=== PATIENT | female | born 1980 | race Caucasian/White ===

== ENCOUNTER 2017-01-15 11:17 | Emergency (ER) | payer OTHER ==
[~2017-01-15] VITALS: Ht 162.6 cm; Wt 70.1 kg
[~2017-01-15 11:17] MED LIST: ALBU8.5H3 INH; ALPR1TAB10 PO; BIRTH CONTROL PO; FLUT1DIS3 INH; KETO10TA PO; METO10TA82 PO; MOME13HF INH; MONT10TA6 PO; ONDA-39 PO; OXYC-229 PO; OXYC1TAB8 PO; RIVA15TA PO; TRAM50TA2 PO
[2017-01-15] MEDS ORDERED: ASPIRIN 81 MG TABLET CHEW ONE (12:23)
[2017-01-15] MEDS ORDERED: SODIUM CHLORIDE 0.9% 1,000ML IVBOLUS ONE (12:30)
[2017-01-15] MEDS ORDERED: ASPIRIN 81 MG TABLET CHEW PO ONE (12:30)
[2017-01-15 13:01] LABS: HEMOGLOBIN 8.7 g/dL (11.7-16.4)
[2017-01-15 13:10] LABS: ASPARTATE AMINO TRANSFERASE 14 U/L (15-37); BLOOD UREA NITROGEN 11 mg/dL (7-18)
[2017-01-15 13:16] LABS: DIFF TOTAL CELLS COUNTED 100 CELL DIFF; IS PT STATUS REG ER OR PRE ER? YES
[2017-01-15 13:19] LABS: VERIFY COUNTS? YES
[2017-01-15 13:20] LABS: ANISOCYTOSIS 1+
[2017-01-15] MEDS ORDERED: HYDROmorphone 1 MG/ML, 1ML IM STA (13:21)
[2017-01-15] MEDS ORDERED: HYDROmorphone 1 MG/ML, 1ML ONE (13:23)
[2017-01-15] MEDS ORDERED: ONDANSETRON ODT 4 MG ONE (13:29)
[2017-01-15] MEDS ORDERED: MORPHINE SULFATE 4 MG/ML, 1ML IVPush PRN (13:30)
[2017-01-15] MEDS ORDERED: ONDANSETRON ODT 4 MG PO ONE (14:00)
[2017-01-15 15:31] VITALS: BP 93/62
== END 2017-01-15 16:33 | disposition home or self-care (01) ==
LOC: ED 13:34
DX: R07.2 Precordial pain (principal); D70.1 Agranulocytosis secondary to cancer chemotherapy; R07.89 Other chest pain; J45.909 Unspecified asthma, uncomplicated; F41.1 Generalized anxiety disorder; F15.10 Other stimulant abuse, uncomplicated; Z86.718 Personal history of other venous thrombosis and embolism; Z85.43 Personal history of malignant neoplasm of ovary; Z85.59 Personal history of malignant neoplasm of other urinary tract organ; Z86.711 Personal history of pulmonary embolism; Z88.1 Allergy status to other antibiotic agents; Z91.010 Allergy to peanuts; Z91.013 Allergy to seafood; Z91.018 Allergy to other foods
CPT/HCPCS: 36415; 71010; 80053; 84484; 85025; 85610; 93005; 96372; 99285; J1170; Q0162

== ENCOUNTER → 2017-02-01 | Outpatient (CLI) | payer MEDICAID ==
[~2017-02-01] MED LIST changes: +FLUO20CA19 PO
== END | disposition home or self-care (01) ==
LOC: ROC 09:34
PROVIDERS: ATTEND Radiology Radiation Oncology
DX: C54.1 Malignant neoplasm of endometrium (principal); Z98.890 Other specified postprocedural states
CPT/HCPCS: 99212; G0463

== ENCOUNTER 2017-03-27 16:10 | Emergency (ER) | payer MEDICAID ==
[~2017-03-27] VITALS: Ht 162.6 cm; Wt 69.7 kg
[2017-03-27] VITALS (7 sets, daily range): BP systolic 97–107; BP diastolic 55–68
[2017-03-27] MEDS ORDERED: SODIUM CHLORIDE FLUSH 10ML SYR IVF ONE (17:00)
[2017-03-27 18:38] LABS: BLOOD UREA NITROGEN 20 mg/dL (7-18)
[2017-03-27] MEDS ORDERED: LORazepam 2 MG/ML, 1ML ONE (19:05)
[2017-03-27] MEDS ORDERED: LORazepam 2 MG/ML, 1ML IVPush ONE (19:30)
== END 2017-03-27 21:45 | disposition home or self-care (01) ==
LOC: ED 20:56
DX: D64.9 Anemia, unspecified (principal); R42 Dizziness and giddiness; J45.909 Unspecified asthma, uncomplicated; Z90.710 Acquired absence of both cervix and uterus; Z88.2 Allergy status to sulfonamides
CPT/HCPCS: 36415; 36430; 71010; 80048; 86850; 86900; 86923; 93005; 96374; 99285; J2060; P9040

== ENCOUNTER → 2017-07-19 | Outpatient (CLI) | payer MEDICAID ==
[~2017-07-19] MED LIST changes: -ALBU8.5H3 INH; +ALBU8.5H8 INH; +OMNIPAQUE 350 MG/ML, 100ML BOTTLE ONE; -ONDA-39 PO; +ONDA4TAB12 PO; -OXYC-229 PO; +OXYC-307 PO
== END | disposition home or self-care (01) ==
LOC: CFH 09:11
PROVIDERS: ATTEND Specialist
DX: K76.89 Other specified diseases of liver (principal); K43.9 Ventral hernia without obstruction or gangrene; C54.1 Malignant neoplasm of endometrium; Z90.710 Acquired absence of both cervix and uterus
CPT/HCPCS: 74177; Q9967

== ENCOUNTER 2017-11-18 16:12 | Emergency (ER) | payer MEDICAID, OTHER ==
[~2017-11-18] VITALS: Ht 162.6 cm; Wt 75.0 kg
[~2017-11-18 16:12] MED LIST changes: -OMNIPAQUE 350 MG/ML, 100ML BOTTLE ONE
[2017-11-18] MEDS ORDERED: ONDANSETRON 2MG/ML, 2ML ONE (16:55)
[2017-11-18] MEDS ORDERED: KETOROLAC 30 MG/1 ML ONE (16:55)
[2017-11-18] MEDS ORDERED: SODIUM CHLORIDE FLUSH 10ML SYR IVF ONE (17:00)
[2017-11-18] MEDS ORDERED: KETOROLAC 30 MG/1 ML IVPush ONE (17:00)
[2017-11-18] MEDS ORDERED: ONDANSETRON 2MG/ML, 2ML IVPush ONE (17:00)
[2017-11-18] MEDS ORDERED: SODIUM CHLORIDE 0.9% 1,000ML IVBOLUS ONE (17:00)
[2017-11-18 17:08] LABS: MICROSCOPIC AUTO
[2017-11-18 17:10] LABS: CULTURE INDICATED? YES
[2017-11-18 17:17] LABS: BASOPHILS # (AUTO) 0.01 x10^3/uL (0-0.1); BASOPHILS % (AUTO) 0 % (0-1); EOSINOPHILS # (AUTO) 0.15 x10^3/uL (0-0.4); EOSINOPHILS % (AUTO) 4 % (1-7); LYMPHOCYTES # (AUTO) 1.08 x10^3/uL (1-3.4); LYMPHOCYTES % (AUTO) 28 % (22-44); MD NO; MEAN CORPUSCULAR HEMOGLOBIN 33.3 pg (27.0-34.8); MEAN CORPUSCULAR HGB CONC 33.7 g/dL (32.4-35.8); MEAN CORPUSCULAR VOLUME 98.7 fL (80-100); MEAN PLATELET VOLUME 7.3 fL (7.4-10.4); MONOCYTES # (AUTO) 0.34 x10^3/uL (0.2-0.8); MONOCYTES % (AUTO) 9 % (2-9); NEUTROPHILS # (AUTO) 2.29 x10^3/uL (1.8-6.8); NEUTROPHILS % (AUTO) 59 % (42-75); PLATELET COUNT 259 x10^3/uL (130-400); RED BLOOD COUNT 3.88 x10^6/uL (3.82-5.3); RED CELL DISTRIBUTION WIDTH 12.8 % (9.6-15.2)
[2017-11-18 17:21] LABS: ALANINE AMINOTRANSFERASE 26 U/L (12-78); ALBUMIN 3.8 g/dL (3.4-5.0); ANION GAP 6 mmol/L (5-15); CALCIUM 8.5 mg/dL (8.5-10.1); CHLORIDE 108 mmol/L (98-107); CREATININE 0.64 mg/dL (0.55-1.02)
[2017-11-18 17:23] LABS: ALKALINE PHOSPHATASE 67 U/L (45-117); BILIRUBIN,TOTAL 0.2 mg/dL (0.2-1.0); TOTAL PROTEIN 6.8 g/dL (6.4-8.2)
[2017-11-18] MEDS ORDERED: OMNIPAQUE 350 MG/ML, 100ML BOTTLE ONE (18:00)
[2017-11-18 18:46] VITALS: BP 94/52
== END 2017-11-18 19:52 | disposition home or self-care (01) ==
LOC: ED 16:49
DX: K59.00 Constipation, unspecified (principal); F41.9 Anxiety disorder, unspecified; J45.909 Unspecified asthma, uncomplicated; Z90.49 Acquired absence of other specified parts of digestive tract; Z90.710 Acquired absence of both cervix and uterus; Z88.2 Allergy status to sulfonamides; Z86.718 Personal history of other venous thrombosis and embolism
CPT/HCPCS: 36415; 74177; 80053; 81001; 83690; 85025; 87086; 96361; 96374; 96375; 99285; J1885; J2405; J7030; Q9967

== ENCOUNTER → 2017-11-21 | Outpatient (CLI) | payer OTHER, MEDICAID | LOC: RAD 12:25 | PROVIDERS: ATTEND Specialist | DX: C54.1 Malignant neoplasm of endometrium (principal); R91.8 Other nonspecific abnormal finding of lung field | CPT/HCPCS: 71260; 74177 ==

== ENCOUNTER 2017-11-27 08:20 | Observation (INO) | payer OTHER, MEDICAID ==
[~2017-11-27] VITALS: Ht 162.6 cm; Wt 77.1 kg
[2017-11-27] MEDS ORDERED: LACTATED RINGERS 1,000 ML IV SCH (08:45)
[2017-11-27] MEDS ORDERED: magnesium PO (08:49)
[2017-11-27] MEDS ORDERED: collagen PO (08:49)
[2017-11-27] MEDS ORDERED: VIT D PO (08:49)
[2017-11-27] MEDS ORDERED: MULTI VIT PO (08:49)
[2017-11-27 08:56] VITALS: BP 106/77
[2017-11-27] MEDS ORDERED: EPINEPHRINE TOPICAL SOLN 1 MG/ML, 30ML ONE (08:58)
[2017-11-27] MEDS ORDERED: MUPIROCIN OINT 2%, 22GM ONE (08:58)
[2017-11-27] MEDS ORDERED: BUPIVACAINE/PF 0.5% ONE (08:58)
[2017-11-27] MEDS ORDERED: LIDOCAINE 1%, 50ML ONE (08:58)
[2017-11-27] MEDS ORDERED: THROMBIN 5,000 UNIT VIAL TP ONE (08:58)
[2017-11-27] MEDS ORDERED: EPINEPHRINE 1 MG/ML, 1ML ONE (08:59)
[2017-11-27] MEDS ORDERED: LIDOCAINE/PF 1%-EPI 1:200K, 30 ML ONE (08:59)
[2017-11-27] MEDS ORDERED: ONDANSETRON 2MG/ML, 2ML IVPush PRN (12:00)
[2017-11-27] MEDS ORDERED: FENTANYL PF 100 MCG/2ML IV PRN (12:00)
[2017-11-27] MEDS ORDERED: OXYcodone 5 MG/5 ML ORAL.SOL UDC PO PRN (12:00)
[2017-11-27] MEDS ORDERED: LABETALOL 5MG/ML, 20ML IV PRN (12:00)
[2017-11-27] MEDS ORDERED: hydrALAzine 20 MG/ML, 1ML IV PRN (12:00)
[2017-11-27] MEDS ORDERED: ACETAMINOPHEN 325 MG TABLET PO PRN (12:00)
[2017-11-27] MEDS ORDERED: METOCLOPRAMIDE 5 MG/ML, 2ML IV PRN (12:00)
[2017-11-27] MEDS ORDERED: HYDROmorphone 2 MG/ML, 1ML ONE (12:03)
[2017-11-27] MEDS: HYDROmorphone 1 MG/ML, 1ML IV PRN ×4 (12:05→12:44)
[2017-11-27] MEDS ORDERED: ALBUTEROL SULFATE 2.5 MG/3 ML NPPB STA (12:10)
[2017-11-27] MEDS ORDERED: ALBUTEROL SULFATE 2.5 MG/3 ML ONE (12:13)
[2017-11-27] MEDS ORDERED: LORazepam 2 MG/ML, 1ML ONE (12:23)
[2017-11-27] MEDS: LORazepam 2 MG/ML, 1ML IVPush PRN ×2 (12:26→12:56)
[2017-11-27] MEDS ORDERED: ALBUTEROL INH PRN (14:30)
[2017-11-27] MEDS ORDERED: ONDANSETRON 2MG/ML, 2ML IV PRN (14:30)
[2017-11-27] MEDS ORDERED: ALBUTEROL SULFATE 2.5 MG/3 ML NPPB PRN (15:00)
[2017-11-27] MEDS ORDERED: SUCCINYLCHOLINE 20 MG/ML, 10ML ONE (15:30)
[2017-11-27] MEDS ORDERED: ROCURONIUM 10 MG/ML,10ML ONE (15:30)
[2017-11-27] MEDS ORDERED: PROPOFOL 10 MG/ML, 20ML ONE (15:30)
[2017-11-27] MEDS ORDERED: ALBUTEROL SULFATE 200 PUFFS/8.5 GR INH ONE (15:30)
[2017-11-27] MEDS ORDERED: DEXAMETHASONE 4 MG/ML, 1ML ONE (15:30)
[2017-11-27] MEDS ORDERED: ONDANSETRON 2MG/ML, 2ML ONE (15:30)
[2017-11-27] MEDS: DEXAMETHASONE 4 MG/ML, 1ML IV SCH ×2 (15:53→19:45)
[2017-11-27] MEDS: morphine SULFATE 10 MG/ML, 1ML IV PRN ×3 (17:40→21:38)
[2017-11-27 19:10] VITALS: BP 124/68
[2017-11-27] MEDS ORDERED: MONTELUKAST 10 MG TABLET PO SCH (21:00)
[2017-11-27] MEDS ORDERED: ADVAIR INH SCH (21:00)
[2017-11-27] MEDS: D5%-LACTATED RINGERS 1,000 ML IV SCH (21:38)
[2017-11-28] MEDS ORDERED: CALCIUM CARBONATE 500 MG TABLET PO ONE
[2017-11-28 00:20] VITALS: BP 95/60
[2017-11-28] MEDS: DEXAMETHASONE 4 MG/ML, 1ML IV SCH (00:43)
[2017-11-28] MEDS: morphine SULFATE 10 MG/ML, 1ML IV PRN ×2 (00:43→05:12)
[2017-11-28 04:06] VITALS: BP 98/60
[2017-11-28] MEDS ORDERED: LEVOTHYROXINE 75 MCG TABLET ONE (05:07)
[2017-11-28] MEDS: D5%-LACTATED RINGERS 1,000 ML IV SCH (05:12)
[2017-11-28] MEDS ORDERED: LEVOTHYROXINE 150 MCG TABLET PO SCH (06:00)
[2017-11-28 07:01] VITALS: BP 96/61
[2017-11-28] MEDS ORDERED: HYDR-882 PO (10:51)
[2017-11-28] MEDS ORDERED: ONDA4TAB10 PO (10:53)
[2017-11-28] MEDS ORDERED: LEVO125T PO (10:53)
== END 2017-11-28 11:35 | disposition home or self-care (01) ==
LOC: OUT 08:20 → 4NOR 13:46 → OUT 13:58 → DCLOUNGE 11-28 11:15
PROVIDERS: ADMIT Specialist; ATTEND Specialist
DX: E04.2 Nontoxic multinodular goiter (principal); J45.909 Unspecified asthma, uncomplicated; Q85.8 Other phakomatoses, not elsewhere classified
CPT/HCPCS: 36415; 60240; 82310; 83970; 88305; 88307; 88333; 96374; 96375; 96376; C1729; G0378; J0171; J0330; J1100; J1170; J2060; J2270; J2405; J2704; J3490; J7120; J7121

== ENCOUNTER → 2017-12-05 | Outpatient (CLI) | payer OTHER, MEDICAID ==
[~2017-12-05] MED LIST changes: +HYDR-882 PO; +LEVO125T PO; +MULTI VIT PO; +ONDA4TAB10 PO; +VIT D PO; +collagen PO; +magnesium PO
== END | disposition home or self-care (01) ==
LOC: ROC 14:44
PROVIDERS: ATTEND Radiology Radiation Oncology
DX: C54.1 Malignant neoplasm of endometrium (principal)
CPT/HCPCS: 99212; G0463

== ENCOUNTER 2017-12-07 07:25 | Emergency (ER) | payer OTHER, MEDICAID ==
[~2017-12-07] VITALS: Ht 160 cm; Wt 73.0 kg
[2017-12-07] MEDS ORDERED: SODIUM CHLORIDE 0.9% 1,000 ML IV ONE (07:54)
[2017-12-07] MEDS ORDERED: MORPHINE SULFATE 4 MG/ML, 1ML IVPush PRN (08:00)
[2017-12-07] MEDS ORDERED: ONDANSETRON 2MG/ML, 2ML IVPush ONE (08:00)
[2017-12-07] MEDS ORDERED: SODIUM CHLORIDE 0.9% 1,000ML IVBOLUS ONE (08:00)
[2017-12-07] MEDS ORDERED: KETOROLAC 30 MG/1 ML ONE (08:46)
[2017-12-07 08:50] LABS: BASOPHILS # (AUTO) 0.01 x10^3/uL (0-0.1); BASOPHILS % (AUTO) 0 % (0-1); EOSINOPHILS # (AUTO) 0.13 x10^3/uL (0-0.4); EOSINOPHILS % (AUTO) 2 % (1-7); LYMPHOCYTES # (AUTO) 0.53 x10^3/uL (1-3.4); LYMPHOCYTES % (AUTO) 9 % (22-44); MD NO; MEAN CORPUSCULAR HEMOGLOBIN 32.5 pg (27.0-34.8); MEAN CORPUSCULAR VOLUME 95.6 fL (80-100); MEAN PLATELET VOLUME 7.3 fL (7.4-10.4); MONOCYTES # (AUTO) 0.41 x10^3/uL (0.2-0.8); MONOCYTES % (AUTO) 7 % (2-9); NEUTROPHILS # (AUTO) 4.63 x10^3/uL (1.8-6.8); NEUTROPHILS % (AUTO) 81 % (42-75); PLATELET COUNT 262 x10^3/uL (130-400); RED BLOOD COUNT 3.79 x10^6/uL (3.82-5.3); RED CELL DISTRIBUTION WIDTH 12.8 % (9.6-15.2)
[2017-12-07 08:59] LABS: ALBUMIN 3.3 g/dL (3.4-5.0); ANION GAP 7 mmol/L (5-15); CHLORIDE 108 mmol/L (98-107)
[2017-12-07 09:00] LABS: CREATININE 0.57 mg/dL (0.55-1.02)
[2017-12-07] MEDS ORDERED: KETOROLAC 30 MG/1 ML IVPush ONE (09:00)
[2017-12-07 09:27] VITALS: BP 87/63
== END 2017-12-07 09:37 | disposition home or self-care (01) ==
LOC: ED 09:30
DX: M54.2 Cervicalgia (principal); C54.1 Malignant neoplasm of endometrium; C56.9 Malignant neoplasm of unspecified ovary; E89.0 Postprocedural hypothyroidism; F41.9 Anxiety disorder, unspecified
CPT/HCPCS: 36415; 80048; 82040; 85025; 96361; 96374; 99284; J1885; J7030

== ENCOUNTER 2017-12-10 09:00 | Inpatient (IN) | payer OTHER, MEDICAID ==
[~2017-12-10] VITALS: Ht 162.6 cm; Wt 72.6 kg
[2017-12-10] MEDS ORDERED: SODIUM CHLORIDE 0.9% 1,000 ML IV ONE (09:13)
[2017-12-10] MEDS ORDERED: SODIUM CHLORIDE FLUSH 10ML SYR IVF ONE (09:30)
[2017-12-10] MEDS ORDERED: ONDANSETRON 2MG/ML, 2ML IVPush ONE (09:30)
[2017-12-10] MEDS ORDERED: MORPHINE SULFATE 4 MG/ML, 1ML IVPush PRN (09:30)
[2017-12-10] MEDS ORDERED: SODIUM CHLORIDE 0.9% 1,000ML IVBOLUS ONE ×5 (09:30→21:30)
[2017-12-10] MEDS ORDERED: ACETAMINOPHEN 650 MG SUPP ONE (09:59)
[2017-12-10] MEDS ORDERED: ACETAMINOPHEN 650 MG SUPP PR ONE (10:00)
[2017-12-10 10:01] LABS: RAPID INFLUENZA A Negative (Negative); RAPID INFLUENZA B Negative (Negative)
[2017-12-10] MEDS ORDERED: MORPHINE SULFATE 4 MG/ML, 1ML ONE (10:01)
[2017-12-10 10:02] LABS: MEAN CORPUSCULAR HGB CONC 34.7 g/dL (32.4-35.8); MEAN CORPUSCULAR VOLUME 95.1 fL (80-100); MEAN PLATELET VOLUME 7.2 fL (7.4-10.4); PLATELET COUNT 334 x10^3/uL (130-400); RED CELL DISTRIBUTION WIDTH 13.2 % (9.6-15.2)
[2017-12-10 10:11] LABS: ALBUMIN 3.3 g/dL (3.4-5.0); ANION GAP 11 mmol/L (5-15); CALCIUM 7.9 mg/dL (8.5-10.1); CHLORIDE 103 mmol/L (98-107); CREATININE 0.63 mg/dL (0.55-1.02)
[2017-12-10 10:16] LABS: BASOPHILS % (AUTO) 0 % (0-1); EOSINOPHILS # (AUTO) 0.05 x10^3/uL (0-0.4); EOSINOPHILS % (AUTO) 0 % (1-7); LYMPHOCYTES # (AUTO) 0.46 x10^3/uL (1-3.4); LYMPHOCYTES % (AUTO) 4 % (22-44); MD SCAN; MONOCYTES # (AUTO) 0.41 x10^3/uL (0.2-0.8); MONOCYTES % (AUTO) 4 % (2-9); NEUTROPHILS # (AUTO) 10.63 x10^3/uL (1.8-6.8); NEUTROPHILS % (AUTO) 92 % (42-75)
[2017-12-10] MEDS ORDERED: OMNIPAQUE 350 MG/ML, 100ML BOTTLE ONE (11:00)
[2017-12-10] MEDS ORDERED: VANCOMYCIN PER PHARMACY MC PRN (11:30)
[2017-12-10] MEDS ORDERED: VANCOMYCIN 1,400 MG in SODIUM CHLORIDE 0.9% 250 ML IV ONE (11:30)
[2017-12-10 11:43] LABS: INTERNATIONAL NORMALIZED RATIO 1.03 (0.93-1.1); PROTHROMBIN TIME 10.6 Seconds (9.6-11.5)
[2017-12-10] MEDS ORDERED: HYDROmorphone 2 MG/ML, 1ML ONE ×3 (12:45→19:06)
[2017-12-10] MEDS ORDERED: ONDANSETRON ODT 4 MG PO PRN (13:00)
[2017-12-10] MEDS ORDERED: SODIUM CHLORIDE 0.9% 1,000 ML IV SCH (13:05)
[2017-12-10 13:17] LABS: MICROSCOPIC NOT IND
[2017-12-10 13:22] LABS: CULTURE INDICATED? NO
[2017-12-10 13:28] VITALS: BP 94/63
[2017-12-10] MEDS ORDERED: DOCUSATE 100 MG CAPSULE PO PRN (13:30)
[2017-12-10] MEDS ORDERED: ACETAMINOPHEN 325 MG TABLET PO PRN ×2 (13:30→18:30)
[2017-12-10] MEDS ORDERED: ALBUTEROL SULFATE 2.5 MG/3 ML NPPB PRN ×3 (13:30→18:30)
[2017-12-10] MEDS ORDERED: morphine SULFATE 10 MG/ML, 1ML IVPush PRN (13:30)
[2017-12-10] MEDS ORDERED: ENALAPRILAT 1.25 MG/ML, 2ML IVPush PRN (13:30)
[2017-12-10] MEDS ORDERED: LABETALOL 5MG/ML, 20ML IVPush PRN (13:30)
[2017-12-10] MEDS ORDERED: POLYETHYLENE GLYCOL 17 GM PACKET PO PRN (13:30)
[2017-12-10] MEDS ORDERED: IBUPROFEN 600 MG TABLET PO PRN (13:30)
[2017-12-10] MEDS: CEFTRIAXONE PMX 2GM/50ML 50 ML IV SCH (14:09)
[2017-12-10 14:34] VITALS: BP 96/62
[2017-12-10] MEDS: CLINDAMYCIN PMX 600MG/50ML 50 ML IV SCH ×2 (15:08→22:20)
[2017-12-10] MEDS ORDERED: EPINEPHRINE TOPICAL SOLN 1 MG/ML, 30ML ONE (16:04)
[2017-12-10] MEDS ORDERED: BUPIVACAINE/PF 0.5% ONE (16:04)
[2017-12-10] MEDS ORDERED: BUPIVACAINE/PF 0.25% ONE (16:04)
[2017-12-10] MEDS ORDERED: MUPIROCIN OINT 2%, 22GM ONE (16:05)
[2017-12-10] MEDS ORDERED: THROMBIN 5,000 UNIT VIAL TP ONE (16:05)
[2017-12-10] MEDS ORDERED: EPINEPHRINE 1 MG/ML, 1ML ONE (16:05)
[2017-12-10] MEDS: FLUTICASONE/VILANTEROL 100-25MCG/INH INH SCH (16:21)
[2017-12-10] MEDS ORDERED: PROPOFOL 10 MG/ML, 20ML ONE (17:10)
[2017-12-10] MEDS ORDERED: SUCCINYLCHOLINE 20 MG/ML, 10ML ONE (17:10)
[2017-12-10] MEDS ORDERED: ONDANSETRON 2MG/ML, 2ML ONE (17:10)
[2017-12-10] MEDS ORDERED: DEXAMETHASONE 4 MG/ML, 1ML ONE (17:10)
[2017-12-10] MEDS ORDERED: CALCIUM CHLORIDE 10%, 10ML SYR ONE (17:36)
[2017-12-10] MEDS ORDERED: CALCIUM GLUCONATE 4.6 MEQ in SODIUM CHLORIDE 0.9% 100 ML IV ONE (18:00)
[2017-12-10] MEDS ORDERED: OXYcodone 5 MG/5 ML ORAL.SOL UDC ONE (18:23)
[2017-12-10] MEDS: HYDROmorphone 1 MG/ML, 1ML IV PRN ×2 (18:28→18:44)
[2017-12-10] MEDS ORDERED: hydrALAzine 20 MG/ML, 1ML IV PRN (18:30)
[2017-12-10] MEDS ORDERED: ONDANSETRON 2MG/ML, 2ML IVPush PRN (18:30)
[2017-12-10] MEDS ORDERED: OXYcodone 5 MG/5 ML ORAL.SOL UDC PO PRN (18:30)
[2017-12-10] MEDS ORDERED: LABETALOL 5MG/ML, 20ML IV PRN (18:30)
[2017-12-10] MEDS ORDERED: FENTANYL PF 100 MCG/2ML IV PRN (18:30)
[2017-12-10 18:39] LABS: CALCIUM 7.7 mg/dL (8.5-10.1)
[2017-12-10 18:43] LABS: FREE T4 (FREE THYROXINE) 1.32 ng/dL (0.76-1.46)
[2017-12-10] MEDS ORDERED: ACETAMINOPHEN 650 MG/20.3 ML UDC ONE (18:55)
[2017-12-10 20:13] VITALS: BP 86/55
[2017-12-10] MEDS: CALCIUM/VITAMIN D3 250-125 TABLET PO SCH (22:20)
[2017-12-11] VITALS (8 sets, daily range): BP systolic 74–106; BP diastolic 42–62
[2017-12-11] MEDS ORDERED: SODIUM CHLORIDE 0.9% 1,000ML IVBOLUS ONE (04:30)
[2017-12-11] MEDS: LEVOTHYROXINE 150 MCG TABLET PO SCH (05:29)
[2017-12-11] MEDS: CLINDAMYCIN PMX 600MG/50ML 50 ML IV SCH ×3 (05:29→21:02)
[2017-12-11 05:34] LABS: BASOPHILS # (AUTO) 0.01 x10^3/uL (0-0.1); BASOPHILS % (AUTO) 0 % (0-1); EOSINOPHILS % (AUTO) 0 % (1-7); LYMPHOCYTES # (AUTO) 0.56 x10^3/uL (1-3.4); LYMPHOCYTES % (AUTO) 7 % (22-44); MD NO; MEAN CORPUSCULAR HEMOGLOBIN 32.8 pg (27.0-34.8); MEAN CORPUSCULAR HGB CONC 33.7 g/dL (32.4-35.8); MEAN CORPUSCULAR VOLUME 97.4 fL (80-100); MEAN PLATELET VOLUME 7.2 fL (7.4-10.4); MONOCYTES # (AUTO) 0.46 x10^3/uL (0.2-0.8); MONOCYTES % (AUTO) 5 % (2-9); NEUTROPHILS # (AUTO) 7.51 x10^3/uL (1.8-6.8); NEUTROPHILS % (AUTO) 88 % (42-75); PLATELET COUNT 241 x10^3/uL (130-400); RED CELL DISTRIBUTION WIDTH 13.1 % (9.6-15.2)
[2017-12-11 06:31] LABS: ANION GAP 7 mmol/L (5-15); CALCIUM 7.6 mg/dL (8.5-10.1); CHLORIDE 111 mmol/L (98-107); CREATININE 0.53 mg/dL (0.55-1.02)
[2017-12-11] MEDS ORDERED: CALCIUM GLUCONATE 0.46MEQ/1ML IVPush ONE (07:30)
[2017-12-11] MEDS ORDERED: CALCIUM GLUCONATE 4.6 MEQ in SODIUM CHLORIDE 0.9% 50 ML IV ONE (08:00)
[2017-12-11] MEDS ORDERED: CALCITRIOL 0.25 MCG CAPSULE PO SCH (09:00)
[2017-12-11] MEDS: FLUTICASONE/VILANTEROL 100-25MCG/INH INH SCH (09:47)
[2017-12-11] MEDS: FLUOXETINE HCL 20 MG CAPSULE PO SCH (09:48)
[2017-12-11] MEDS: CALCIUM/VITAMIN D3 250-125 TABLET PO SCH ×3 (09:48→21:03)
[2017-12-11] MEDS: MONTELUKAST 10 MG TABLET PO SCH (09:51)
[2017-12-11] MEDS: KETOROLAC 30 MG/1 ML IM PRN ×2 (09:59→18:17)
[2017-12-11] MEDS ORDERED: SODIUM CHLORIDE 0.9% 1,000 ML IV SCH (13:05)
[2017-12-11] MEDS: CEFTRIAXONE PMX 2GM/50ML 50 ML IV SCH (13:55)
[2017-12-11] MEDS: RIVAROXABAN 15 MG TABLET PO SCH (21:02)
[2017-12-11] MEDS: CALCITRIOL 0.5 MCG CAPSULE PO SCH (21:02)
[2017-12-12 01:11] VITALS: BP 94/57
[2017-12-12 05:18] LABS: BASOPHILS # (AUTO) 0.01 x10^3/uL (0-0.1); BASOPHILS % (AUTO) 0 % (0-1); EOSINOPHILS # (AUTO) 0.13 x10^3/uL (0-0.4); EOSINOPHILS % (AUTO) 4 % (1-7); LYMPHOCYTES # (AUTO) 0.59 x10^3/uL (1-3.4); LYMPHOCYTES % (AUTO) 16 % (22-44); MD NO; MEAN CORPUSCULAR HEMOGLOBIN 32.5 pg (27.0-34.8); MEAN CORPUSCULAR HGB CONC 33.6 g/dL (32.4-35.8); MEAN CORPUSCULAR VOLUME 96.6 fL (80-100); MEAN PLATELET VOLUME 7.2 fL (7.4-10.4); MONOCYTES # (AUTO) 0.32 x10^3/uL (0.2-0.8); MONOCYTES % (AUTO) 9 % (2-9); NEUTROPHILS % (AUTO) 72 % (42-75); PLATELET COUNT 242 x10^3/uL (130-400); RED BLOOD COUNT 2.87 x10^6/uL (3.82-5.3); RED CELL DISTRIBUTION WIDTH 13.1 % (9.6-15.2)
[2017-12-12 05:34] LABS: CHLORIDE 110 mmol/L (98-107)
[2017-12-12] MEDS: LEVOTHYROXINE 150 MCG TABLET PO SCH (05:39)
[2017-12-12] MEDS: CLINDAMYCIN PMX 600MG/50ML 50 ML IV SCH (05:39)
[2017-12-12 05:41] LABS: ALANINE AMINOTRANSFERASE 36 U/L (12-78); ALBUMIN 2.4 g/dL (3.4-5.0); ALKALINE PHOSPHATASE 60 U/L (45-117); ANION GAP 6 mmol/L (5-15); BILIRUBIN,TOTAL 0.4 mg/dL (0.2-1.0); CREATININE 0.57 mg/dL (0.55-1.02); TOTAL PROTEIN 5.6 g/dL (6.4-8.2)
[2017-12-12] MEDS: CALCIUM/VITAMIN D3 250-125 TABLET PO SCH (08:37)
[2017-12-12] MEDS: MONTELUKAST 10 MG TABLET PO SCH (08:37)
[2017-12-12] MEDS: FLUTICASONE/VILANTEROL 100-25MCG/INH INH SCH (08:37)
[2017-12-12] MEDS: CALCITRIOL 0.5 MCG CAPSULE PO SCH (08:37)
[2017-12-12] MEDS: FLUOXETINE HCL 20 MG CAPSULE PO SCH (08:38)
[2017-12-12] MEDS: RIVAROXABAN 15 MG TABLET PO SCH (08:39)
[2017-12-12 09:45] VITALS: BP 114/66
[2017-12-12] MEDS ORDERED: CALC1TAB68 PO (11:50)
[2017-12-12] MEDS ORDERED: CALC0.5C9 PO (11:50)
[2017-12-12] MEDS ORDERED: AMOX250S20 PO (11:50)
== END 2017-12-12 13:18 | disposition home or self-care (01) | DRG 856 ==
LOC: ED 09:39 → EDIP 11:34 → 4WST 13:10 → DCLOUNGE 12-12 13:10
PROVIDERS: ADMIT Specialist; ATTEND Specialist
PROC: 0W960ZZ Drainage of Neck, Open Approach (ICD-10-PCS; principal; 2017-12-10 21:15)
DX: T81.4XXA Infection following a procedure, initial encounter (principal); A41.9 Sepsis, unspecified organism; L02.11 Cutaneous abscess of neck; R13.10 Dysphagia, unspecified; C50.919 Malignant neoplasm of unspecified site of unspecified female breast; L03.90 Cellulitis, unspecified; F19.20 Other psychoactive substance dependence, uncomplicated; E04.2 Nontoxic multinodular goiter; E89.0 Postprocedural hypothyroidism; I10 Essential (primary) hypertension; F41.1 Generalized anxiety disorder; J45.909 Unspecified asthma, uncomplicated; E20.9 Hypoparathyroidism, unspecified; Z79.01 Long term (current) use of anticoagulants; Z85.42 Personal history of malignant neoplasm of other parts of uterus; Z85.43 Personal history of malignant neoplasm of ovary; Z86.718 Personal history of other venous thrombosis and embolism; Z86.711 Personal history of pulmonary embolism; Z90.710 Acquired absence of both cervix and uterus; Z92.21 Personal history of antineoplastic chemotherapy
CPT/HCPCS: 36415; 70491; 71045; 80048; 80053; 81003; 82040; 82310; 83605; 83735; 84100; 84439; 85025; 85610; 85730; 87040; 87070; 87075; 87077; 87186; 87205; 87400; 93005; 99291; J0171; J0610; J0696; J1100; J1170; J1885; J2250; J2405; J2704; J3010; J3370; J3490; Q9967; J0330; J2270; J7030; J7050

== ENCOUNTER → 2018-03-20 | Outpatient (CLI) | payer MEDICAID, OTHER ==
[~2018-03-20] MED LIST changes: +AMOX250S20 PO; +CALC0.5C9 PO; +CALC1TAB68 PO; +OMNIPAQUE 350 MG/ML, 100ML BOTTLE ONE
== END | disposition home or self-care (01) ==
LOC: CFH 12:37
PROVIDERS: ATTEND Specialist
DX: K76.89 Other specified diseases of liver (principal); Z85.42 Personal history of malignant neoplasm of other parts of uterus
CPT/HCPCS: 74177; Q9967

== ENCOUNTER → 2018-04-05 | Outpatient (CLI) | payer OTHER ==
[~2018-04-05] MED LIST changes: -OMNIPAQUE 350 MG/ML, 100ML BOTTLE ONE
== END | disposition home or self-care (01) ==
LOC: ROC 15:03
PROVIDERS: ATTEND Radiology Radiation Oncology
DX: Z08 Encounter for follow-up examination after completed treatment for malignant neoplasm (principal); Z85.42 Personal history of malignant neoplasm of other parts of uterus
CPT/HCPCS: 99212; G0463

== ENCOUNTER → 2018-06-17 | Outpatient (CLI) | payer OTHER ==
[~2018-06-17] MED LIST changes: +OMNIPAQUE 350 MG/ML, 100ML BOTTLE ONE
== END | disposition home or self-care (01) ==
LOC: CFH 11:35
PROVIDERS: ATTEND Specialist
DX: K76.9 Liver disease, unspecified (principal); C54.1 Malignant neoplasm of endometrium; I82.402 Acute embolism and thrombosis of unspecified deep veins of left lower extremity; Z88.2 Allergy status to sulfonamides; Z91.013 Allergy to seafood
CPT/HCPCS: 71260; 74177; Q9967

== ENCOUNTER → 2018-08-08 | Outpatient (CLI) | payer OTHER ==
[~2018-08-08] MED LIST changes: +HYDR-3653 PO; -HYDR-882 PO; -OMNIPAQUE 350 MG/ML, 100ML BOTTLE ONE
== END | disposition home or self-care (01) ==
LOC: ROC 08:04
PROVIDERS: ATTEND Radiology Radiation Oncology
DX: C55 Malignant neoplasm of uterus, part unspecified (principal)
CPT/HCPCS: 99212; G0463

== ENCOUNTER 2018-12-03 10:58 | Inpatient (IN) | payer OTHER ==
[~2018-12-03] VITALS: Ht 162.6 cm; Wt 74.4 kg
[~2018-12-03 10:58] MED LIST changes: -CALC-112 PO; -FENTANYL PF 100 MCG/2ML ONE; -HEPARIN 25,000 UNITS/500ML PMX 500 ML IV PRN; -HEPARIN 5,000 UNITS/ML, 1ML IV PRN; -HEPARIN 5,000 UNITS/ML, 1ML ONE; -LIDOCAINE-MPF 1%, 5ML ONE; -MIDAZOLAM 1 MG/ML, 5ML ONE; -RIVA20TA PO; -SODIUM CHLORIDE 0.9% 1,000 ML IV SCH
[2018-12-03] MEDS ORDERED: CALC-112 PO (11:15)
[2018-12-03 11:20] LABS: BASOPHILS # (AUTO) 0.02 x10^3/uL (0-0.1); BASOPHILS % (AUTO) 1 % (0-1); EOSINOPHILS # (AUTO) 0.16 x10^3/uL (0-0.4); EOSINOPHILS % (AUTO) 5 % (1-7); LYMPHOCYTES % (AUTO) 33 % (22-44); MD NO; MONOCYTES # (AUTO) 0.27 x10^3/uL (0.2-0.8); MONOCYTES % (AUTO) 9 % (2-9); NEUTROPHILS # (AUTO) 1.63 x10^3/uL (1.8-6.8); NEUTROPHILS % (AUTO) 53 % (42-75); PLATELET COUNT 241 x10^3/uL (130-400); RED BLOOD COUNT 3.67 x10^6/uL (3.82-5.3); RED CELL DISTRIBUTION WIDTH 13.3 % (9.6-15.2)
[2018-12-03 11:31] LABS: ALBUMIN 3.5 g/dL (3.4-5.0); ANION GAP 3 mmol/L (5-15); CALCIUM 8.3 mg/dL (8.5-10.1); CHLORIDE 111 mmol/L (98-107); CREATININE 0.71 mg/dL (0.55-1.02)
--- NOTE | 2018-12-03 11:52 | NUR ---
LATE NOTE ENTRY FOR 1102: Pt presents to ED from same day surgery for hold and observation until pt can be admitted to hospital floor. Pt went to have and IVC filter removed today in surgery. IVC filter unable to be removed. PT is on heparin drip infusing prior to arrival to ED. NADN. PT c/o 6 right sided neck pain from incision site. Dressing over surgical site is clean, dry, and intact. Skin surrounding dressing is clean, dry, and intact. Pt's friend at bedside. PT is AOX4, has unlabored respirations equal bilaterally, and cms in tact. Pt connected to all monitors. All safety measures in place. No other needs requested at this time. ED MD at bedside discussing plan of care. Pt states understanding.
[2018-12-03 12:17] LABS: PROTHROMBIN TIME 11.4 Seconds (9.6-11.5)
[2018-12-03 12:18] LABS: INTERNATIONAL NORMALIZED RATIO 1.08 (0.93-1.1)
[2018-12-03 12:21] LABS: PARTIAL THROMBOPLASTIN TIME > 153 Seconds (25-31)
[2018-12-03] MEDS ORDERED: SODIUM CHLORIDE FLUSH 10ML SYR IVF PRN (13:00)
[2018-12-03] MEDS ORDERED: HEPARIN 5,000 UNITS/ML, 1ML IV ONE (13:30)
[2018-12-03] MEDS: HEPARIN 5,000 UNITS/ML, 1ML IV PRN ×2 (13:36→17:47)
[2018-12-03] MEDS: HEPARIN 25,000 UNITS/500ML PMX 500 ML IV PRN (13:37)
[2018-12-03] MEDS ORDERED: ALBUTEROL SULFATE 2.5MG/0.5ML NPPB PRN (14:00)
--- NOTE | 2018-12-03 14:17 | NUR ---
Provided bedside commode for pt. Pt appreciative. Pt urineated yellow clear urine.
--- NOTE | 2018-12-03 14:26 | NUR ---
Provided report to DOLLY Menjivar. All questins answered. Pt ready to transfer to floor from ED.
--- NOTE | 2018-12-03 14:30 | NUR ---
Pt aware of NPO status. Pt states last food and drink was a burrito and water around 11:30 am today.
--- NOTE | 2018-12-03 14:58 | NUR ---
Pt transfered to floor from ED and left with all personal belongings.
[2018-12-03 15:12] VITALS: BP 110/68
[2018-12-03] MEDS ORDERED: ALBUTEROL SULFATE 2.5 MG/3 ML HHN SCH (15:30)
[2018-12-03] MEDS: BUDESONIDE 0.5 MG/2 ML INHA HHN SCH ×2 (15:30→20:58)
[2018-12-03] MEDS ORDERED: ALBUTEROL SULFATE 2.5 MG/3 ML NPPB PRN (17:30)
[2018-12-03] MEDS ORDERED: HYDROcodone/APAP 5/325 TABLET PO PRN (18:30)
[2018-12-03 20:14] VITALS: BP 103/67
[2018-12-03] MEDS ORDERED: MONTELUKAST 10 MG TABLET PO SCH (21:00)
[2018-12-03] MEDS ORDERED: BUDESONIDE 0.5 MG/2 ML INHA NPPB SCH (21:00)
[2018-12-04] MEDS: HEPARIN 5,000 UNITS/ML, 1ML IV PRN ×2 (01:18→11:41)
[2018-12-04 05:40] VITALS: BP 99/61
[2018-12-04] MEDS ORDERED: LEVOTHYROXINE 125 MCG TABLET PO SCH (06:00)
[2018-12-04 07:31] VITALS: BP 109/68
[2018-12-04 08:07] LABS: BASOPHILS # (AUTO) 0.02 x10^3/uL (0-0.1); BASOPHILS % (AUTO) 1 % (0-1); EOSINOPHILS # (AUTO) 0.18 x10^3/uL (0-0.4); EOSINOPHILS % (AUTO) 5 % (1-7); LYMPHOCYTES # (AUTO) 0.88 x10^3/uL (1-3.4); LYMPHOCYTES % (AUTO) 27 % (22-44); MD NO; MEAN CORPUSCULAR HEMOGLOBIN 33.4 pg (27.0-34.8); MEAN CORPUSCULAR HGB CONC 33.2 g/dL (32.4-35.8); MEAN CORPUSCULAR VOLUME 100.6 fL (80-100); MEAN PLATELET VOLUME 7.5 fL (7.4-10.4); MONOCYTES # (AUTO) 0.31 x10^3/uL (0.2-0.8); MONOCYTES % (AUTO) 10 % (2-9); NEUTROPHILS # (AUTO) 1.88 x10^3/uL (1.8-6.8); NEUTROPHILS % (AUTO) 58 % (42-75); PLATELET COUNT 227 x10^3/uL (130-400); RED BLOOD COUNT 3.91 x10^6/uL (3.82-5.3); RED CELL DISTRIBUTION WIDTH 13.4 % (9.6-15.2)
[2018-12-04 08:15] LABS: ANION GAP 3 mmol/L (5-15); CHLORIDE 111 mmol/L (98-107); CREATININE 0.67 mg/dL (0.55-1.02)
[2018-12-04] MEDS ORDERED: BUDESONIDE 0.5 MG/2 ML INHA HHN SCH (09:00)
[2018-12-04] MEDS ORDERED: TEMPLATE NON-FORMULARY MED. (Fluticasone/Salmeterol** (Advair 250-50 Diskus**) 1 PUFF) INH SCH (09:00)
[2018-12-04] MEDS ORDERED: FLUOXETINE HCL 20 MG CAPSULE PO SCH (09:00)
[2018-12-04] MEDS ORDERED: FLUTICASONE/VILANTEROL 200-25MCG/INH INH SCH (09:00)
[2018-12-04] MEDS: HEPARIN 25,000 UNITS/500ML PMX 500 ML IV PRN (12:45)
[2018-12-04 12:50] VITALS: BP 95/62
[2018-12-04] MEDS ORDERED: RIVA20TA PO (14:09)
[2018-12-04] MEDS ORDERED: RIVAROXABAN 20 MG TABLET PO ONE (14:30)
[2018-12-04] MEDS ORDERED: RIVAROXABAN 15 MG TABLET PO SCH (17:00)
== END 2018-12-04 17:30 | disposition home or self-care (01) | DRG 316 ==
LOC: ED 11:07 → EDIP 12:53 → 4NOR 14:58
PROVIDERS: ADMIT Family Medicine; ATTEND Family Medicine
DX: T82.898A Other specified complication of vascular prosthetic devices, implants and grafts, initial encounter (principal); Y83.8 Other surgical procedures as the cause of abnormal reaction of the patient, or of later complication, without mention of misadventure at the time of the procedure; Y92.89 Other specified places as the place of occurrence of the external cause; E89.0 Postprocedural hypothyroidism; F32.9 Major depressive disorder, single episode, unspecified; F41.1 Generalized anxiety disorder; Z82.49 Family history of ischemic heart disease and other diseases of the circulatory system; Z82.5 Family history of asthma and other chronic lower respiratory diseases; J45.909 Unspecified asthma, uncomplicated; Z79.01 Long term (current) use of anticoagulants; Z85.42 Personal history of malignant neoplasm of other parts of uterus; Z85.43 Personal history of malignant neoplasm of ovary; Z86.711 Personal history of pulmonary embolism; Z86.718 Personal history of other venous thrombosis and embolism; Z86.72 Personal history of thrombophlebitis; Z90.13 Acquired absence of bilateral breasts and nipples; Z90.710 Acquired absence of both cervix and uterus; Z92.21 Personal history of antineoplastic chemotherapy; Z90.49 Acquired absence of other specified parts of digestive tract; F12.10 Cannabis abuse, uncomplicated
CPT/HCPCS: 36415; 99285; J7626; 80048; 82040; 85025; 85520; 85610; 85730; 94640; G0378; J1644

== ENCOUNTER → 2018-12-03 | Day surgery (SDC) | payer OTHER ==
[~2018-12-03] VITALS: Ht 162.6 cm; Wt 72.4 kg
[~2018-12-03] MED LIST changes: +CALC-112 PO; +FENTANYL PF 100 MCG/2ML ONE; +HEPARIN 25,000 UNITS/500ML PMX 500 ML IV PRN; +HEPARIN 5,000 UNITS/ML, 1ML IV PRN; +HEPARIN 5,000 UNITS/ML, 1ML ONE; +LIDOCAINE-MPF 1%, 5ML ONE; +MIDAZOLAM 1 MG/ML, 5ML ONE; +RIVA20TA PO; +SODIUM CHLORIDE 0.9% 1,000 ML IV SCH
[2018-12-03 06:50] VITALS: BP 111/74
== END | disposition home or self-care (01) ==
LOC: OUT 05:50
PROVIDERS: ATTEND Specialist
DX: Z45.2 Encounter for adjustment and management of vascular access device (principal); J45.909 Unspecified asthma, uncomplicated; K21.9 Gastro-esophageal reflux disease without esophagitis; Z88.1 Allergy status to other antibiotic agents; Z88.8 Allergy status to other drugs, medicaments and biological substances; Z85.42 Personal history of malignant neoplasm of other parts of uterus; Z79.01 Long term (current) use of anticoagulants; Z86.711 Personal history of pulmonary embolism; Z98.890 Other specified postprocedural states; Z90.10 Acquired absence of unspecified breast and nipple; Z72.89 Other problems related to lifestyle
CPT/HCPCS: 37193; 74150; 99156; 99157; C1773; J1644; J2250; J3010; J7030

== ENCOUNTER → 2018-12-24 | Outpatient (CLI) | payer OTHER ==
[~2018-12-24] MED LIST changes: +CALC-112 PO; +FENTANYL PF 100 MCG/2ML ONE; +MIDAZOLAM 1 MG/ML, 2ML ONE; +OMNIPAQUE 350 MG/ML, 100ML BOTTLE ONE; +RIVA20TA PO
== END | disposition home or self-care (01) ==
LOC: CFH 09:48
PROVIDERS: ATTEND Specialist
DX: C54.1 Malignant neoplasm of endometrium (principal)
CPT/HCPCS: 71260; 74177; Q9967; J2250; J3010

== ENCOUNTER 2018-12-25 20:28 | Emergency (ER) | payer OTHER ==
[~2018-12-25] VITALS: Ht 162.6 cm; Wt 75.0 kg
[~2018-12-25 20:28] MED LIST changes: -FENTANYL PF 100 MCG/2ML ONE; -MIDAZOLAM 1 MG/ML, 2ML ONE; -OMNIPAQUE 350 MG/ML, 100ML BOTTLE ONE
[2018-12-25 20:36] VITALS: BP 104/67
[2018-12-25] MEDS ORDERED: FAMOTIDINE 20 MG TABLET ONE (20:51)
[2018-12-25] MEDS ORDERED: FAMOTIDINE 20 MG TABLET PO ONE (21:00)
== END 2018-12-25 21:37 | disposition home or self-care (01) ==
LOC: ED 20:56
DX: T78.40XA Allergy, unspecified, initial encounter (principal); L50.9 Urticaria, unspecified; J20.8 Acute bronchitis due to other specified organisms; B97.89 Other viral agents as the cause of diseases classified elsewhere; X58.XXXA Exposure to other specified factors, initial encounter
CPT/HCPCS: 71046; 99283; J7512

== ENCOUNTER 2019-02-21 08:22 | Outpatient (CLI) | payer OTHER | END 2019-02-21 23:59 | disposition home or self-care (01) | LOC: ROC 08:22 | PROVIDERS: ATTEND Radiology Radiation Oncology | DX: C55 Malignant neoplasm of uterus, part unspecified (principal) | CPT/HCPCS: 99212; G0463 ==

== ENCOUNTER 2019-05-13 08:26 | Emergency (ER) | payer OTHER ==
[~2019-05-13] VITALS: Ht 162.6 cm; Wt 78.2 kg
[2019-05-13] MEDS ORDERED: ASPI-496 PO (08:54)
--- NOTE | 2019-05-13 09:23 | NUR ---
pt refused opioid pain meds at this time, awaiting CTA.
[2019-05-13 09:29] LABS: BASOPHILS # (AUTO) 0.01 x10^3/uL (0-0.1); BASOPHILS % (AUTO) 0 % (0-1); EOSINOPHILS # (AUTO) 0.16 x10^3/uL (0-0.4); EOSINOPHILS % (AUTO) 4 % (1-7); LYMPHOCYTES # (AUTO) 0.82 x10^3/uL (1-3.4); LYMPHOCYTES % (AUTO) 21 % (22-44); MD NO; MEAN CORPUSCULAR HEMOGLOBIN 33.5 pg (27.0-34.8); MEAN CORPUSCULAR HGB CONC 33.3 g/dL (32.4-35.8); MEAN CORPUSCULAR VOLUME 100.6 fL (80-100); MONOCYTES # (AUTO) 0.34 x10^3/uL (0.2-0.8); MONOCYTES % (AUTO) 9 % (2-9); NEUTROPHILS % (AUTO) 66 % (42-75); PLATELET COUNT 270 x10^3/uL (130-400); RED BLOOD COUNT 3.98 x10^6/uL (3.82-5.3); RED CELL DISTRIBUTION WIDTH 12.5 % (9.6-15.2)
[2019-05-13] MEDS ORDERED: SODIUM CHLORIDE FLUSH 10ML SYR IVF ONE (09:30)
[2019-05-13] MEDS ORDERED: MORPHINE SULFATE 4 MG/ML, 1ML IVPush PRN (09:30)
[2019-05-13] MEDS ORDERED: ONDANSETRON 2MG/ML, 2ML IVPush ONE (09:30)
[2019-05-13 09:40] LABS: ALANINE AMINOTRANSFERASE 30 U/L (12-78); ALBUMIN 4.1 g/dL (3.4-5.0); ANION GAP 6 mmol/L (5-15); CALCIUM 8.8 mg/dL (8.5-10.1); CHLORIDE 105 mmol/L (98-107)
[2019-05-13 09:45] LABS: ALKALINE PHOSPHATASE 58 U/L (45-117); BILIRUBIN,TOTAL 0.4 mg/dL (0.2-1.0); CREATININE 0.76 mg/dL (0.55-1.02); TOTAL PROTEIN 7.1 g/dL (6.4-8.2); TROPONIN I < 0.015 ng/mL (0.000-0.045)
--- NOTE | 2019-05-13 10:01 | NUR ---
pt upright on gurney awake & calm, responds approp to staff, NAD, comfort measures provided, call light within reach.
[2019-05-13] MEDS ORDERED: OMNIPAQUE 350 MG/ML, 100ML BOTTLE ONE (10:23)
[2019-05-13] MEDS ORDERED: KETOROLAC 30 MG/1 ML ONE (10:39)
[2019-05-13] MEDS ORDERED: KETOROLAC 30 MG/1 ML IVPush ONE (11:00)
--- NOTE | 2019-05-13 11:00 | NUR ---
report given to Jose Alejandro.
[2019-05-13 11:24] VITALS: BP 101/65
--- NOTE | 2019-05-13 11:26 | NUR ---
Patient/Caregiver given discharge instructions and they have confirmed that they understand the instructions. Patient ambulatory with steady gait. PIV removed by this RN.
== END 2019-05-13 11:27 | disposition home or self-care (01) ==
LOC: ED 10:33
DX: R07.89 Other chest pain (principal); R06.00 Dyspnea, unspecified; R05 Cough; Z88.2 Allergy status to sulfonamides
CPT/HCPCS: 36415; 71275; 80053; 83880; 84484; 84703; 85025; 93005; 96374; 99284; J1885; Q9967

== ENCOUNTER → 2019-09-01 | Outpatient (CLI) | payer OTHER ==
[~2019-09-01] MED LIST changes: +ASPI-496 PO
== END | disposition home or self-care (01) ==
LOC: ROC 07:53
PROVIDERS: ATTEND Radiology Radiation Oncology
DX: Z08 Encounter for follow-up examination after completed treatment for malignant neoplasm (principal); Z85.42 Personal history of malignant neoplasm of other parts of uterus
CPT/HCPCS: 99212; G0463

== ENCOUNTER 2019-09-20 09:48 | Emergency (ER) | payer OTHER ==
[~2019-09-20] VITALS: Ht 162.6 cm; Wt 78.2 kg
[2019-09-20 09:50] VITALS: BP 114/60
--- NOTE | 2019-09-20 10:02 | NUR ---
PT HERE FOR MEDICATION REFILL. PT STATES SHE WENT TO URGENT CARE AND WAS SENT HERE FOR PROZAC REFILL. PT AAO X 4, NAD, ROOM AIR, CALL LIGHT WITHIN REACH. PA AT BEDSIDE.
[2019-09-20] MEDS ORDERED: LORazepam 1MG TABLET ONE (10:30)
[2019-09-20] MEDS ORDERED: LORazepam 1MG TABLET PO ONE (10:30)
--- NOTE | 2019-09-20 10:32 | NUR ---
PT MEDICATED PER ORDER. PT TEARFUL AND STATES SHE IS "FRUSTRATED THAT YOU AREN'T DOING ANYTHING FOR ME. URGENT CARE SENT ME HERE, IT'S NOT MY FAULT THAT MY PRIMARY LEFT HIS PRACTICE." EDUCATION AND EMOTIONAL SUPPORT PROVIDED.
--- NOTE | 2019-09-20 10:43 | NUR ---
Patient/Caregiver given discharge instructions and they have confirmed that they understand the instructions. Patient ambulatory with steady gait.
== END 2019-09-20 10:49 | disposition home or self-care (01) ==
LOC: ED 10:01
DX: F43.0 Acute stress reaction (principal); F41.9 Anxiety disorder, unspecified; Z76.0 Encounter for issue of repeat prescription; J45.909 Unspecified asthma, uncomplicated
CPT/HCPCS: 99283

== ENCOUNTER 2020-03-19 07:24 | Outpatient (CLI) | payer OTHER ==
[~2020-03-19 07:24] MED LIST changes: +ONDA-89 PO; -ONDA4TAB12 PO
== END 2020-03-19 23:59 | disposition home or self-care (01) ==
LOC: ROC 07:24
PROVIDERS: ATTEND Radiology Radiation Oncology
DX: Z08 Encounter for follow-up examination after completed treatment for malignant neoplasm (principal); Z85.42 Personal history of malignant neoplasm of other parts of uterus; Z90.13 Acquired absence of bilateral breasts and nipples; Z90.710 Acquired absence of both cervix and uterus
CPT/HCPCS: 99212; G0463

== ENCOUNTER → 2020-03-23 | Outpatient (CLI) | payer OTHER ==
[~2020-03-23] MED LIST changes: +OMNIPAQUE 350 MG/ML, 100ML BOTTLE ONE
== END | disposition home or self-care (01) ==
LOC: CFH 12:34
PROVIDERS: ATTEND Physician Assistant
DX: K42.9 Umbilical hernia without obstruction or gangrene (principal)
CPT/HCPCS: 71260; 74177; Q9967

== ENCOUNTER 2020-05-27 09:53 | Emergency (ER) | payer OTHER ==
[~2020-05-27] VITALS: Ht 162.6 cm; Wt 88.0 kg
[~2020-05-27 09:53] MED LIST changes: -OMNIPAQUE 350 MG/ML, 100ML BOTTLE ONE
--- NOTE | 2020-05-27 10:10 | NUR ---
FIRST CONTACT WITH PT. PT STATES SHE HAS BLOOD CLOTS IN STOOL, DARK RED CLOTS. PT ALSO C/O ABD CRAMPS WITH NAUSEA. HX OF FISSURE. PT'S AOX4. RESPS EVEN AND UNLABORED. BP/SPO2 MONITORS IN PLACE. CALL LIGHT WITHIN REACH.
--- NOTE | 2020-05-27 10:17 | NUR ---
EDMD AT BEDSIDE TO EVALUATE AT THIS TIME.
--- NOTE | 2020-05-27 10:30 | NUR ---
PIV EST ON R AC WITH NO COMPLICATIONS. PT TOLERATED WELL.
[2020-05-27 11:05] LABS: BASOPHILS # (AUTO) 0.02 x10^3/uL (0-0.1); BASOPHILS % (AUTO) 0 % (0-1); EOSINOPHILS # (AUTO) 0.21 x10^3/uL (0-0.4); EOSINOPHILS % (AUTO) 5 % (1-7); LYMPHOCYTES # (AUTO) 0.94 x10^3/uL (1-3.4); LYMPHOCYTES % (AUTO) 21 % (22-44); MD NO; MEAN CORPUSCULAR HEMOGLOBIN 33.3 pg (27.0-34.8); MEAN CORPUSCULAR HGB CONC 32.8 g/dL (32.4-35.8); MEAN CORPUSCULAR VOLUME 101.5 fL (80-100); MEAN PLATELET VOLUME 7.2 fL (7.4-10.4); MONOCYTES % (AUTO) 9 % (2-9); NEUTROPHILS # (AUTO) 2.84 x10^3/uL (1.8-6.8); NEUTROPHILS % (AUTO) 65 % (42-75); PLATELET COUNT 282 x10^3/uL (130-400); RED BLOOD COUNT 3.98 x10^6/uL (3.82-5.3); RED CELL DISTRIBUTION WIDTH 12.8 % (9.6-15.2)
[2020-05-27 11:10] LABS: INTERNATIONAL NORMALIZED RATIO 0.92 (0.93-1.1); PROTHROMBIN TIME 9.7 Seconds (9.6-11.5)
[2020-05-27 11:12] LABS: ALANINE AMINOTRANSFERASE 28 U/L (12-78); ALBUMIN 3.7 g/dL (3.4-5.0); ANION GAP 4 mmol/L (5-15); CALCIUM 8.8 mg/dL (8.5-10.1); CHLORIDE 109 mmol/L (98-107); CREATININE 0.67 mg/dL (0.55-1.02)
[2020-05-27 11:14] LABS: ALKALINE PHOSPHATASE 62 U/L (45-117); BILIRUBIN,TOTAL 0.3 mg/dL (0.2-1.0); TOTAL PROTEIN 6.7 g/dL (6.4-8.2)
--- NOTE | 2020-05-27 11:33 | NUR ---
PT BACK TO ROOM FROM CT AT THIS TIME.
[2020-05-27] MEDS ORDERED: OMNIPAQUE 350 MG/ML, 100ML BOTTLE ONE (11:34)
--- NOTE | 2020-05-27 12:07 | NUR ---
TASK RN: PT AWAITING CT RESULTS. NO DISTRESS
[2020-05-27 13:33] VITALS: BP 104/63
--- NOTE | 2020-05-27 13:34 | NUR ---
Patient given discharge instructions and they have confirmed that they understand the instructions. Patient ambulatory with steady gait.
== END 2020-05-27 13:35 | disposition home or self-care (01) ==
LOC: ED 10:32
DX: K62.5 Hemorrhage of anus and rectum (principal); A09 Infectious gastroenteritis and colitis, unspecified; R10.9 Unspecified abdominal pain; Z90.89 Acquired absence of other organs; Z90.10 Acquired absence of unspecified breast and nipple; Z85.43 Personal history of malignant neoplasm of ovary; Z85.42 Personal history of malignant neoplasm of other parts of uterus; Z90.710 Acquired absence of both cervix and uterus; Z86.718 Personal history of other venous thrombosis and embolism; Z90.722 Acquired absence of ovaries, bilateral
CPT/HCPCS: 36415; 74177; 80053; 83690; 85025; 85610; 85730; 99285; Q9967

== ENCOUNTER 2020-08-26 07:06 | Outpatient (CLI) | payer OTHER | END 2020-08-26 23:59 | disposition home or self-care (01) | LOC: ROC 07:06 | PROVIDERS: ATTEND Radiology Radiation Oncology | DX: Z08 Encounter for follow-up examination after completed treatment for malignant neoplasm (principal); Z85.42 Personal history of malignant neoplasm of other parts of uterus | CPT/HCPCS: 99212; G0463 ==

== ENCOUNTER 2020-12-05 03:51 | Emergency (ER) | payer OTHER ==
[~2020-12-05] VITALS: Ht 162.6 cm; Wt 92.2 kg
[~2020-12-05 03:51] MED LIST changes: -OXYC-307 PO; +OXYC-380 PO
--- NOTE | 2020-12-05 04:49 | NUR ---
PT AMBULATED TO ROOM 24. A&OX4, NO ACUTE DISTRESS. PLACED IN BED AND IN GOWN, AND SIDERAILS UP X2, AND CALL LIGHT WITHIN REACH. PLACED ON CR MONITOR, AND STILL COMPLAINS OF PAIN TO UPPER LEFT QUAD OF ABDOMEN, AND PAIN AT 7/10.
[2020-12-05] MEDS ORDERED: SODIUM CHLORIDE 0.9% 1,000ML IVBOLUS ONE (05:30)
[2020-12-05] MEDS ORDERED: KETOROLAC 30 MG/1 ML IVPush ONE (05:30)
[2020-12-05] MEDS ORDERED: DIPHENHYDRAMINE 50 MG/ML, 1ML IVPush ONE (05:30)
[2020-12-05] MEDS ORDERED: SODIUM CHLORIDE FLUSH 10ML SYR IVF ONE (05:30)
[2020-12-05] MEDS ORDERED: PROCHLORPERAZINE 5 MG/ML, 2ML IVPush ONE (05:30)
[2020-12-05] MEDS ORDERED: PROCHLORPERAZINE 5 MG/ML, 2ML ONE (05:43)
[2020-12-05] MEDS ORDERED: DIPHENHYDRAMINE 50 MG/ML, 1ML ONE (05:43)
[2020-12-05] MEDS ORDERED: KETOROLAC 30 MG/1 ML ONE (05:43)
[2020-12-05 06:02] LABS: BASOPHILS % (AUTO) 0 % (0-1); EOSINOPHILS % (AUTO) 3 % (1-7); LYMPHOCYTES % (AUTO) 12 % (22-44); MEAN CORPUSCULAR HEMOGLOBIN 34.5 pg (27.0-34.8); MEAN PLATELET VOLUME 8.3 fL (7.4-10.4); MONOCYTES % (AUTO) 5 % (2-9); NEUTROPHILS % (AUTO) 80 % (42-75); PLATELET COUNT 77 x10^3/uL (130-400); RED CELL DISTRIBUTION WIDTH 12.2 % (9.6-15.2)
[2020-12-05 06:11] LABS: ANION GAP 8 mmol/L (5-15); CALCIUM 9.4 mg/dL (8.5-10.1); CHLORIDE 102 mmol/L (98-107); CREATININE 0.96 mg/dL (0.55-1.02)
[2020-12-05 06:12] LABS: MD NO
--- NOTE | 2020-12-05 06:51 | NUR ---
REPORT FROM DOLLY THOMAS
[2020-12-05 07:01] VITALS: BP 109/55
--- NOTE | 2020-12-05 07:02 | NUR ---
Pt ambulated down pike without difficulty. Steady on feet. Pt stats LEYVA has resolved and she is ok to go home.
--- NOTE | 2020-12-05 07:32 | NUR ---
Pt not in room when attempted to discharge. No pt belongings seen in room. Gown left on bed. Previous primary RN stated that she had contacted family for a ride home. Discharge paperwork left with charge coordinator.
== END 2020-12-05 07:37 | disposition home or self-care (01) ==
LOC: ED 07:00
DX: B34.9 Viral infection, unspecified (principal); Z20.822 Contact with and (suspected) exposure to COVID-19; R51.9 Headache, unspecified; K21.9 Gastro-esophageal reflux disease without esophagitis; J45.909 Unspecified asthma, uncomplicated; C54.1 Malignant neoplasm of endometrium; Z86.718 Personal history of other venous thrombosis and embolism; Z90.49 Acquired absence of other specified parts of digestive tract; Z90.710 Acquired absence of both cervix and uterus; Z90.89 Acquired absence of other organs
CPT/HCPCS: 71045; 80048; 82040; 85025; 87635; 96361; 96374; 96375; 99284; J0780; J1200; J1885; J7030

== ENCOUNTER → 2021-01-13 | Outpatient (CLI) | payer OTHER | END | disposition home or self-care (01) | LOC: ROC 08:17 | PROVIDERS: ATTEND Radiology Radiation Oncology | DX: Z08 Encounter for follow-up examination after completed treatment for malignant neoplasm (principal); Z85.42 Personal history of malignant neoplasm of other parts of uterus; K21.9 Gastro-esophageal reflux disease without esophagitis; Z86.718 Personal history of other venous thrombosis and embolism; J45.909 Unspecified asthma, uncomplicated; Z90.710 Acquired absence of both cervix and uterus | CPT/HCPCS: 99213; G0463 ==

== ENCOUNTER 2021-07-21 07:14 | Outpatient (CLI) | payer OTHER ==
[~2021-07-21 07:14] MED LIST changes: -OXYC-380 PO; +OXYC-501 PO
== END 2021-07-21 23:59 | disposition home or self-care (01) ==
LOC: ROC 07:14
PROVIDERS: ATTEND Radiology Radiation Oncology
DX: Z08 Encounter for follow-up examination after completed treatment for malignant neoplasm (principal); Z85.42 Personal history of malignant neoplasm of other parts of uterus
CPT/HCPCS: 99212; G0463